=== PATIENT | female | born 1970 | race Caucasian/White ===

== ENCOUNTER 2024-06-17 07:45 | Emergency (ER) | payer SELFPAY ==
[2024-06-17 07:45] VITALS: BMI 40.3
--- NOTE | 2024-06-17 07:49 | EKG_ITS ---
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
[2024-06-17 08:05] VITALS: BP 191/106; BP 221/81; PULSE 90; RESP 20; TEMP 37.1; O2SAT 98
--- NOTE | 2024-06-17 08:06 | XR_ITS ---
Examination: PA lateral chest 2 views TECHNIQUE: Upright PA lateral chest 2 views Exam date and time: June 17, 2024 0847 hours INDICATIONS: Chest pain shortness of breath beginning one week ago. FINDINGS: No significant cardiac enlargement Minor scarring in the lingular segment No lobar pneumonia or pulmonary edema IMPRESSION: No lobar pneumonia or pulmonary edema
[2024-06-17 08:12] VITALS: BP 221/81; PULSE 90
[2024-06-17] MEDS: cloNIDine HCL 0.1 MG TABLET 0.2 MG PO (08:12)
[2024-06-17] MEDS: ALPRazoLAM 0.25 MG TABLET PO (08:13)
[2024-06-17 09:01] LABS: Basophils # (Auto) 0.1 Thou/mm3 (0.0-0.2); Basophils % (Auto) 1 % (0-2.5); Eosinophils # (Auto) 0.1 Thou/mm3 (0.0-0.5); Eosinophils % (Auto) 1 % (0-10); Hematocrit 43.5 % (36.0-46.0); Hemoglobin 15.1 g/dL (12.0-16.0); Immature Granulocytes % (Auto) 1 % (0-0); Immature Granulocytes Auto 0.03 Thou/mm3 (0.00-0.00); Lymphocytes # (Auto) 1.4 Thou/mm3 (1.0-4.8); Lymphocytes % (Auto) 22 % (10-50); Mean Corpuscular HGB Conc 34.7 g/dl (31.0-37.0); Mean Corpuscular Hemoglobin 34.1 pg (25.0-35.0); Mean Corpuscular Volume 98 fL (80-100); Monocytes # (Auto) 0.4 Thou/mm3 (0.0-0.8); Monocytes % (Auto) 6 % (0-12); Neutrophils # (Auto) 4.5 Thou/mm3 (1.8-7.7); Neutrophils % (Auto) 70 % (37-80); Nucleated Red Blood Cell % 0 /100 WBC (0); Platelet Count 232 Thou/mm3 (140-440); RDW Standard Deviation 50.2 fL (36.4-46.3); Red Blood Count 4.43 Miln/mm3 (4.00-5.20); White Blood Count 6.5 Thou/mm3 (3.6-11.0)
[2024-06-17 09:21] LABS: Alanine Aminotransferase 57 U/L (10-49); Albumin/Globulin Ratio 1.6 (1.2-2.2); Alkaline Phosphatase 75 U/L (46-116); Anion Gap 10 (7-16); Aspartate Amino Transferase 81 U/L (0-34); BUN/Creatinine Ratio 9 Ratio (12-20); Bilirubin,Total 3.8 mg/dL (0.3-1.2); Blood Urea Nitrogen 8 mg/dL (9-23); Carbon Dioxide 27.2 mMol/L (20.0-31.0); Chloride 97 mMol/L (98-107); Creatinine (Component) 0.9 mg/dL (0.6-1.3); Estimated Creatinine Clearance 86.1 mL/min (>60); Globulin 3.1 gm/dL (2.3-3.5); Glucose 125 mg/dL (74-106); Osmolality,Calculated 267 (275-295); Potassium 4.2 mMol/L (3.4-5.1); Sodium 134 mMol/L (136-145); Total Protein 8.1 gm/dL (5.7-8.2); Troponin I < 0.020 ng/mL (0.0-0.045); eGFR > 60 See Note
--- NOTE | 2024-06-17 09:25 | XR_ITS ---
Examination: Abdomen sonogram, Limited Date and time of exam: June 17, 2024 1109 hours INDICATIONS: Abdominal pain high blood pressure epigastric pain today Technique: Real-time stevens scale transabdominal sonographic images of the upper abdomen obtained. Findings: Normal gallbladder Normal common bile duct 0.3 cm Pancreatic head 3.4 cm Liver 16.4 cm fatty infiltration no focal liver lesions Normal hepatopedal portal venous flow Patent IVC IMPRESSION: Normal gallbladder Mild hepatomegaly fatty liver
[2024-06-17] MEDS: IBUPROFEN TAB 400 MG TABLET 800 MG PO (09:35)
[2024-06-17 10:05] VITALS: BP 164/90; PULSE 73; RESP 16; TEMP 37.3; O2SAT 95
[2024-06-17 10:36] LABS: Lipase 37 U/L (12-53)
--- NOTE | 2024-06-17 11:53 | PD.EDADULT ---
ED General RME/HPI General Chief complaint: General Adult/Misc Complain Stated complaint: BP 200/100 FEELING CLAMMY Time Seen by Provider: 06/17/24 07:49 Arrival date/time: 06/17/24 07:45 53-year-old female presents emerged department complaint of elevated blood pressure and anxiety patient reports history of hypertension reports has not taken her medication in some time patient reports no fever nausea or vomiting. Patient shares that this feels like her anxiety acting up Limitations: no limitations Related Data Allergies Allergy/AdvReac Type Severity Reaction Status Date / Time UNKOWN ARTHRITIS CREAM Allergy Severe Hives Uncoded 06/17/24 07:47 Review of Systems Review of Systems Systems Reviewed: All systems reviewed, normal except as documented Constitutional Constitutional: Reports system reviewed and no additional complaints, except as documented, Denies fever(s) and Denies headache(s) Eyes Eyes: Reports system reviewed and no additional complaints, except as documented and Denies blurry vision ENT Ears, Nose, Mouth, and Throat: Reports system reviewed and no additional complaints, except as documented, Denies headache(s), Denies nasal congestion and Denies nasal discharge Cardiovascular Cardiovascular: Reports system reviewed and no additional complaints, except as documented, Denies chest pain and Denies dyspnea Respiratory Respiratory: Reports system reviewed and no additional complaints, except as documented, Denies chest congestion, Denies cough and Denies dyspnea Gastrointestinal Gastrointestinal: Reports system reviewed and no additional complaints, except as documented and Denies abdominal pain Integumentary/Breasts Skin/Breast: Reports system reviewed and no additional complaints, except as documented and Denies rash Neurologic Neurologic: Reports system reviewed and no additional complaints, except as documented, Reports as per HPI and Denies headache(s) Psychiatric Psychiatric: Reports system reviewed and no additional complaints, except as documented, Reports anxiety, Denies homicidal ideation, Denies hopelessness, Reports panic attacks and Denies suicidal ideation Past Medical History Past Medical History CARDIAC: Negative Congestive Heart Failure RESPIRATORY: Negative Chronic Obstructive Pulmonary Disease (COPD) GENITOURINARY: Negative Renal Disease ENDOCRINE: Negative Diabetes Mellitus Type 1 or Diabetes Mellitus Type 2 Social History SMOKING STATUS: Never smoker ED Exam General Limitations: Present no limitations General appearance: Present alert and in no apparent distress Head Head exam: Present atraumatic, normocephalic and normal inspection Eye Eye exam: Present normal appearance, PERRL and EOMI; Absent conjunctival injection ENT ENT exam: Present normal exam, normal oropharynx and mucous membranes moist Neck Neck exam: Present normal inspection, full ROM and trachea midline Chest Chest inspection: Present normal inspection and symmetric chest wall rise Respiratory Respiratory exam: Present normal lung sounds bilaterally; Absent respiratory distress Cardiovascular Cardiovascular exam: Present regular rate, normal rhythm and normal heart sounds Abdominal Exam Abdominal exam: Present soft and normal bowel sounds; Absent distention, tenderness, guarding, rebound, rigidity, Graham's sign or tenderness at McBurney's Point Abdominal tenderness: Absent RUQ or RLQ Extremities Exam Extremities exam: Present normal inspection and full ROM Back Exam Back exam: Present normal inspection and full ROM Neurological Exam Neurological exam: Present alert, oriented X3 and CN II-XII intact Psychiatric Psychiatric exam: Present normal affect and normal mood Skin Skin exam: Present warm, dry, intact and normal color Course Quality Measures none Orders Category Date Time Status EKG (ED ONLY) *Do not use* NOW Care 06/17/24 07:49 Completed EKG (ED Only) Stat Exams 06/17/24 07:49 Draft US gall bladder Stat Exams 06/17/24 09:25 Completed XR chest 2V Stat Exams 06/17/24 08:06 Completed CBC Stat Lab 06/17/24 08:27 Completed Comprehensive Metabolic Panel Stat Lab 06/17/24 08:27 Completed Lipase Stat Lab 06/17/24 08:27 Completed Troponin I Stat Lab 06/17/24 08:27 Completed ALPRazoLAM [Xanax] Med 06/17/24 08:06 Discontinued 0.25 mg PO X1 ONE Ibuprofen Tab [Motrin Tab] Med 06/17/24 09:30 Discontinued 800 mg PO X1 ONE cloNIDine HCL [Catapres] Med 06/17/24 08:06 Discontinued 0.2 mg PO X1 ONE Vital Signs Vital signs: Vital Signs Temperature 98.7 F 06/17/24 08:05 Pulse Rate 90 06/17/24 08:05 Respiratory Rate 20 06/17/24 08:05 Blood Pressure 221/81 H 06/17/24 08:05 Pulse Oximetry (%) 98 06/17/24 08:05 Oxygen Delivery Method Room Air 06/17/24 08:05 o2 sat 98% r/a wnl Procedures -ED EKG Interpretation #1: Date of EK06/17/24 Time of EK:00 Rate: 73 Interpretation: Interpreted by me EKG Impression: Normal sinus rhythm, No acute ST-T changes, No ectopy, No ischemic changes, Normal QRS, Normal intervals and Normal axis MDM Patient data External records reviewed:: [facility] previous records Clinical information provided by:: patient Social determinants that could affect healthcare access:: mental health Patient has the following chronic illnesses:: See history How is presenting disease/condition affected by chronic disease/condition?: caused by Evaluation data The following diagnostics were reviewed and interpreted by me:: lab results, radiology exam(s) and EKG tracing(s) Lab and/or radiology exams considered but not ordered:: Labs, radiology, EKG obtained Interpretation Summary: Reviewed by me Medications Medications considered but not ordered:: Given Medication administrations:: Medication Administration History Discontinued Medications Alprazolam (Alprazolam 0.25 Mg Tablet) 0.25 mg PO X1 ONE Stop: 06/17/24 08:07 Last Admin: 06/17/24 08:13 Dose: 0.25 mg Documented By: JACKIE Clonidine (Clonidine Hcl 0.1 Mg Tablet) 0.2 mg PO X1 ONE Stop: 06/17/24 08:07 Last Admin: 06/17/24 08:12 Dose: 0.2 mg Documented By: VG Ibuprofen (Ibuprofen Tab 400 Mg Tablet) 800 mg PO X1 ONE Stop: 06/17/24 09:31 Last Admin: 06/17/24 09:35 Dose: 800 mg Documented By: TM Given Consultations Consultation(s) initiated? (list below): No Diagnosis Differential Diagnosis ED Complaint MDM: Chest pain, anxiety, abdominal pain Most likely diagnosis given after review of the tests above:: Anxiety, elevated liver enzymes Admission Indicated Admission indicated?: not indicated Explain why admission is indicated or not indicated:: No criteria Admission Request Was there a request for admission?: No Disposition Plan Disposition Plan: Discharge Discharge Attestation Discharge Attestation: The patient and all family members were given an opportunity to ask questions and understood the discharge instructions. Discharge instructions specifically effects, indications for sooner follow up or return to the emergency department, and the expected course of current diagnosis. Patient condition: Stable Medical Decision Making MDM Narrative MDM Narrative: 53-year-old female presents emerged department complaint of elevated blood pressure and anxiety patient reports history of hypertension reports has not taken her medication in some time patient reports no fever nausea or vomiting. Patient shares that this feels like her anxiety acting up On exam patient does not appear ill or toxic in no acute distress Lab work EKG and imaging obtained EKG is unremarkable Troponin is normal Patient given medication for blood pressure as well as anxiety patient reports her symptoms have significantly improved and her blood pressure is significantly improved as well Incidentally patient was noted to have elevated liver enzymes, lipase was normal Gallbladder ultrasound obtained patient does have fatty liver otherwise unremarkable Explained to the patient she needs to follow-up with her primary care doctor in order to get further workup of her elevated liver enzymes. Patient reports no abdominal pain whatsoever patient has negative Graham sign Differential Diagnosis Differential Diagnosis: Chest pain, anxiety, abdominal pain Medical Records Medical records reviewed: Yes I reviewed the patient's medical records. Lab Data Lab results reviewed: Yes I reviewed the patient's lab results. 06/17/24 08:27 06/17/24 08:27 Labs: Lab Results 06/17/24 Range/Units 08:27 WBC 6.5 (3.6-11.0) Thou/mm3 RBC 4.43 (4.00-5.20) Miln/mm3 Hgb 15.1 (12.0-16.0) g/dL Hct 43.5 (36.0-46.0) % MCV 98 (80-100) fL MCH 34.1 (25.0-35.0) pg MCHC 34.7 (31.0-37.0) g/dl RDW Std Deviation 50.2 H (36.4-46.3) fL Plt Count 232 (140-440) Thou/mm3 Neut % (Auto) 70 (37-80) % Lymph % (Auto) 22 (10-50) % [place] % (Auto) 6 (0-12) % Eos % (Auto) 1 (0-10) % Baso % (Auto) 1 (0-2.5) % Neut # (Auto) 4.5 (1.8-7.7) Thou/mm3 Lymph # (Auto) 1.4 (1.0-4.8) Thou/mm3 [place] # (Auto) 0.4 (0.0-0.8) Thou/mm3 Eos # (Auto) 0.1 (0.0-0.5) Thou/mm3 Baso # (Auto) 0.1 (0.0-0.2) Thou/mm3 Immature Gran # (Auto) 0.03 H (0.00-0.00) Thou/mm3 Absolute Nucleated RBC 0.00 (0.00-0.00) Thou/mm3 Immature Gran % 1 H (0-0) % Nucleated RBC % 0 (0) /100 WBC Sodium 134 L (136-145) mMol/L Potassium 4.2 (3.4-5.1) mMol/L Chloride 97 L (98-107) mMol/L Carbon Dioxide 27.2 (20.0-31.0) mMol/L Anion Gap 10 (7-16) BUN 8 L (9-23) mg/dL Creatinine 0.9 (0.6-1.3) mg/dL Estim Creat Clear Calc 86.1 (>60) mL/min eGFR > 60 (60 - ) See Note BUN/Creatinine Ratio 9 L (12-20) Ratio Glucose 125 H (74-106) mg/dL Calculated Osmolality 267 L (275-295) Calcium 10.0 (8.3-10.6) mg/dL Corrected Calcium 10.0 (8.5-10.1) mg/dL Total Bilirubin 3.8 H (0.3-1.2) mg/dL AST 81 H (0-34) U/L ALT 57 H (10-49) U/L Alkaline Phosphatase 75 (46-116) U/L Troponin I < 0.020 (0.0-0.045) ng/mL Total Protein 8.1 (5.7-8.2) gm/dL Albumin 5.0 (3.5-5.0) gm/dL Globulin 3.1 (2.3-3.5) gm/dL Albumin/Globulin Ratio 1.6 (1.2-2.2) Lipase 37 (12-53) U/L Radiology Data Radiology results reviewed: Yes I reviewed the patient's radiology results. Discharge Plan Plan Patient Disposition: HOME (Self Care) Disposition Comment: Stable Prescriptions/Referrals Referrals: Alec Peterson MD [Primary Care Provider] - In 1 week Problem List Clinical Impression: Anxiety, Hypertension, Elevated liver enzymes Patient/Caregiver Discharge Instructions Education Materials: ED Anxiety Reaction Additional Instructions: Please follow with your primary care doctor in order for them to start your blood pressure medication once again also would like you to discuss with them your liver enzymes and possibly referred to a specialist Your bilirubin today is 3.8 AST 81 ALT 57 For any emergent concerns please return to the ER immediately Print Language: Mongolian Stand Alone Forms: [facility] Award Info., Patient Portal Info Letter PA/POINT OF CARE TECHNICIAN Supervising Physician PA/POINT OF CARE TECHNICIAN Supervising Physician: Dr Lewis
== END 2024-06-17 12:22 | disposition home or self-care (01) ==
PROVIDERS: Nurse Practitioner Primary Care; Emergency Provider Emergency Medicine; PCP Family Medicine
DX: F41.9 Anxiety disorder, unspecified (principal); I10 Essential (primary) hypertension
CPT/HCPCS: 36415; 71046; 76705; 80053; 83690; 84484; 85025; 93005; 99284; A9270

== ENCOUNTER 2024-07-21 13:58 | Emergency (ER) | payer MEDICAID, SELFPAY ==
[2024-07-21 14:00] VITALS: BMI 39.4
[2024-07-21 14:16] VITALS: BP 178/85; BP 181/93; PULSE 81; RESP 18; TEMP 36.9; O2SAT 95
--- NOTE | 2024-07-21 14:20 | EKG_ITS ---
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
--- NOTE | 2024-07-21 14:20 | PD.EDADULT ---
ED General RME/HPI General Chief complaint: General Adult/Misc Complain Stated complaint: HIGHB/P, NOT EATING/SLEEPING, EYE SKIN YELLOW Source: patient Arrival date/time: 07/21/24 13:58 53-year-old female with a history of hypertension presents to the emergency room with a chief complaint of high blood pressure, insomnia, and yellowing sclera. Patient states she was seen by her primary care provider and sent to the emergency room due to her blood pressure being in the 200s systolic. Mode of arrival: ambulatory Limitations: no limitations Related Data Allergies Allergy/AdvReac Type Severity Reaction Status Date / Time UNKOWN ARTHRITIS CREAM Allergy Severe Hives Uncoded 07/21/24 14:02 ED Exam General Limitations: Present no limitations Course Orders Category Date Time Status EKG (ED ONLY) *Do not use* NOW Care 07/21/24 14:20 Ordered EKG (ED Only) Stat Exams 07/21/24 14:20 Ordered B-Type Natriuretic Peptide Stat Lab 07/21/24 14:20 Ordered CBC Stat Lab 07/21/24 14:20 Ordered Comprehensive Metabolic Panel Stat Lab 07/21/24 14:20 Ordered Troponin I Stat Lab 07/21/24 14:20 Ordered Urinalysis Stat Lab 07/21/24 14:20 Ordered cloNIDine HCL [Catapres] Med 07/21/24 14:20 Once 0.1 mg PO X1 ONE Vital Signs Vital signs: Vital Signs Temperature 98.5 F 07/21/24 14:16 Pulse Rate 81 07/21/24 14:16 Respiratory Rate 18 07/21/24 14:16 Blood Pressure 178/85 H 07/21/24 14:16 Pulse Oximetry (%) 95 07/21/24 14:16 Oxygen Delivery Method Room Air 07/21/24 14:16 Discharge Plan Patient/Caregiver Discharge Instructions Print Language: Nepalese
[2024-07-21 14:38] VITALS: BP 178/85; PULSE 81
[2024-07-21] MEDS: cloNIDine HCL 0.1 MG TABLET PO (14:38)
[2024-07-21 14:45] LABS: Basophils % (Auto) 0 % (0-2.5); Eosinophils # (Auto) 0.1 Thou/mm3 (0.0-0.5); Eosinophils % (Auto) 1 % (0-10); Hematocrit 39.3 % (36.0-46.0); Hemoglobin 14.1 g/dL (12.0-16.0); Immature Granulocytes % (Auto) 0 % (0-0); Immature Granulocytes Auto 0.02 Thou/mm3 (0.00-0.00); Lymphocytes # (Auto) 1.5 Thou/mm3 (1.0-4.8); Lymphocytes % (Auto) 20 % (10-50); Mean Corpuscular HGB Conc 35.9 g/dl (31.0-37.0); Mean Corpuscular Hemoglobin 34.2 pg (25.0-35.0); Mean Corpuscular Volume 95 fL (80-100); Monocytes # (Auto) 0.5 Thou/mm3 (0.0-0.8); Monocytes % (Auto) 6 % (0-12); Neutrophils # (Auto) 5.3 Thou/mm3 (1.8-7.7); Neutrophils % (Auto) 72 % (37-80); Nucleated Red Blood Cell % 0 /100 WBC (0); Platelet Count 167 Thou/mm3 (140-440); RDW Standard Deviation 49.2 fL (36.4-46.3); Red Blood Count 4.12 Miln/mm3 (4.00-5.20); White Blood Count 7.3 Thou/mm3 (3.6-11.0)
[2024-07-21 15:03] LABS: B-Type Natriuretic Peptide < 20 pg/mL (0-100)
[2024-07-21 15:13] LABS: Alanine Aminotransferase 73 U/L (10-49); Albumin/Globulin Ratio 1.6 (1.2-2.2); Alkaline Phosphatase 87 U/L (46-116); Anion Gap 10 (7-16); Aspartate Amino Transferase 125 U/L (0-34); BUN/Creatinine Ratio 10 Ratio (12-20); Bilirubin,Total 3.6 mg/dL (0.3-1.2); Blood Urea Nitrogen 8 mg/dL (9-23); Carbon Dioxide 26.9 mMol/L (20.0-31.0); Chloride 99 mMol/L (98-107); Creatinine (Component) 0.8 mg/dL (0.6-1.3); Estimated Creatinine Clearance 95.7 mL/min (>60); Globulin 3.2 gm/dL (2.3-3.5); Glucose 125 mg/dL (74-106); Osmolality,Calculated 271 (275-295); Potassium 4.4 mMol/L (3.4-5.1); Sodium 136 mMol/L (136-145); Total Protein 8.2 gm/dL (5.7-8.2); eGFR > 60 See Note
[2024-07-21 15:26] LABS: Troponin I < 0.020 ng/mL (0.0-0.045)
[2024-07-21 15:49] LABS: Collection Type, Urine Clean Catch
--- NOTE | 2024-07-21 15:51 | PD.EDRME ---
Rapid Medical Screening Exam [facility] Arrival date/time: 07/21/24 13:58 53-year-old female with a history of hypertension presents to the emergency room with a chief complaint of high blood pressure, insomnia, and yellowing sclera. Patient states she was seen by her primary care provider and sent to the emergency room due to her blood pressure being in the 200s systolic. I have greeted and performed a focused initial assessment of this patient. A comprehensive ED assessment and evaluation of the patient, analysis of all test results, and completion of the medical decision making process will be conducted by additional ED providers. Chief Complaint: General Adult/Misc Complain Time Seen by Provider: 07/21/24 14:21 Vital signs: Vital Signs Temperature 98.5 F 07/21/24 14:16 Pulse Rate 81 07/21/24 14:16 Respiratory Rate 18 07/21/24 14:16 Blood Pressure 178/85 H 07/21/24 14:16 Pulse Oximetry (%) 95 07/21/24 14:16 Oxygen Delivery Method Room Air 07/21/24 14:16 Vital signs reviewed by provider: Yes
--- NOTE | 2024-07-21 15:52 | XR_ITS ---
Examination: Abdomen sonogram, Limited Date and time of exam: July 21, 2024 1708 hrs. Indications: Right upper abdominal pain beginning 3 days ago Technique: Real-time stevens scale transabdominal sonographic images of the upper abdomen obtained. Findings: Negative for gallstones Gallbladder wall 0.1 cm Common bile duct 0.2 cm Pancreatic head 3.0 cm Liver 16.9 cm fatty infiltration no focal liver lesions Normal hepatopedal portal venous flow Patent IVC Impression: Negative for cholelithiasis, negative for cholecystitis Mild hepatomegaly fatty liver
[2024-07-21 16:27] LABS: Bilirubin,Total 3.5 mg/dL (0.3-1.2); Triglycerides 105 mg/dL (30-150)
[2024-07-21 16:29] LABS: Bacteria,Urine Rare; Bilirubin,Urine Negative (Negative); Blood,Urine Negative (Negative); Clarity,Urine Turbid (Clear/Hazy); Color,Urine Drk-Yellow (Lt Yel-Yel); Glucose, Urine Negative (Negative); Ketones,Urine 2+ (Negative); Leukocyte Esterase,Urine Positive (Negative); Nitrite,Urine Negative (Negative); Protein,Urine 2+ (Neg - Trace); RBC,Urine 3 /hpf (0-3); Specific Gravity,Urine 1.031 (1.001-1.035); Squamous Epithelial Cell,Urine 49 /hpf (0-5); WBC,Urine 23 /hpf (0-5)
[2024-07-21 16:56] VITALS: BP 180/102; BP 188/104; PULSE 91; RESP 18; TEMP 36.9; O2SAT 95
--- NOTE | 2024-07-21 18:53 | XR_ITS ---
Examination: CT abdomen with intravenous contrast CT pelvis with intravenous contrast 2-D coronal reconstructions 2-D sagittal reconstructions Date and time of exam:July 21, 2024 2107 hrs. Indications: Elevated blood pressure with jaundice beginning 3 days ago. CTDI: vol (mGy) 13.8 DLP: (mGycm) 908 Technique: Multiple axial sections of the abdomen and pelvis have been obtained. 64 slice high-resolution scanner used. 3 mm axial sections have been obtained, post intravenous injection 60 cc [id number] 2-D sagittal, coronal reconstructions obtained. Low dose protocols were performed. One or more of the following dose reduction techniques were used; automated exposure control, adjustment of the mA and/or KV according to patient size, use of iterative reconstruction technique. Findings: Diffuse fatty infiltration throughout the liver No definite gallstones Spleen is not enlarged No pancreatic mass Normal adrenal glands No renal or ureteral calculi, no hydronephrosis Aorta normal size No bowel obstruction No pericecal inflammatory change No diverticulitis Advanced disc narrowing L5-S1 Urinary bladder intact Impression: Mild hepatomegaly fatty infiltration No definite gallstones No extra hepatic biliary tract dilatation Given the patient's elevated total bilirubin, consider MRCP follow-up
--- NOTE | 2024-07-21 18:54 | EDNOTE_ITS ---
ED General RME/HPI General Chief complaint: General Adult/Misc Complain Stated complaint: HIGHB/P, NOT EATING/SLEEPING, EYE SKIN YELLOW Time Seen by Provider: 07/21/24 14:21 Arrival date/time: 07/21/24 13:58 CC: Elevated blood pressure anxiety, and mild upper abdominal pain HPI patient has had loss of appetite for the past several days, is fairly anxious, but her blood pressure at the time of the exam was 170/80. Patient was delighted that her blood pressure is coming down without intervention. The patient is awake alert oriented states during the ultrasound she noticed that she had upper central and right upper quadrant abdominal pain with the probe. Patient denies fever nausea vomiting diarrhea during the last 24 hours. RME / HPI RME / HPI narrative: 07/21/24 13:58 53-year-old female with a history of hypertension presents to the emergency room with a chief complaint of high blood pressure, insomnia, and yellowing sclera. Patient states she was seen by her primary care provider and sent to the emergency room due to her blood pressure being in the 200s systolic. I have greeted and performed a focused initial assessment of this patient. A comprehensive ED assessment and evaluation of the patient, analysis of all test results, and completion of the medical decision making process will be conducted by additional ED providers. Related Data Allergies Allergy/AdvReac Type Severity Reaction Status Date / Time UNKOWN ARTHRITIS CREAM Allergy Severe Hives Uncoded 07/21/24 14:02 Review of Systems Review of Systems Narrative Review of Systems: GEN: No fever, no chills, no weight loss EYES: No discharge, no visual changes, no pain HEENT: No ear pain, no congestion, no sore throat PULM: No shortness of breath, no cough, no congestion CV: No chest pain, no dyspnea on exertion, no palpitations GI: No nausea, no vomiting, no diarrhea, no pain, no constipation : No frequency, no urgency, no dysuria MUSC/SKEL: No joint pain, no back pain SKIN: No rash PSYCH: No hallucinations, no depression HEME/LYMPH: No easy bleeding or bruising tendencies NEURO: No weakness, no headache Past Medical History Past Medical History CARDIAC: Negative Congestive Heart Failure RESPIRATORY: Negative Chronic Obstructive Pulmonary Disease (COPD) GENITOURINARY: Negative Renal Disease ENDOCRINE: Negative Diabetes Mellitus Type 1 or Diabetes Mellitus Type 2 Social History SMOKING STATUS: Never smoker ED Exam Narrative Physical exam: [General: Obese not in any acute distress Head normocephalic HEENT: Within acceptable limits Neck is supple nontender Chest equal chest rise nontender to palpation Respiratory: Clear to auscultation no wheezes crackles or rubs CV: Rate rhythm is regular no murmurs rubs or clicks Abdomen is distended secondary to body habitus soft, very mild epigastric right upper quadrant abdominal pain with deep palpation, no reflexive guarding no rebound tenderness. Back: No CVA tenderness no spinous process tenderness from cervical spine thoracic and lumbar spine Skin: Intact no petechiae rash induration ulceration or crepitus Extremities: Moving all extremity against resistance cap refill less than 2 seconds neurosensory intact. No lower extremity edema. Neuro: Awake alert oriented x3 Glascow coma 15 no focal deficits] Course Quality Measures none Orders Category Date Time Status CT Screening NOW Care 07/21/24 18:53 Active EKG (ED ONLY) *Do not use* NOW Care 07/21/24 14:[address] abdomen pelvis w con Stat Exams 07/21/24 18:53 Completed EKG (ED Only) Stat Exams 07/21/24 14:20 Draft US gall bladder Stat Exams 07/21/24 15:52 Completed B-Type Natriuretic Peptide Stat Lab 07/21/24 14:37 Completed Bilirubin,Total Stat Lab 07/21/24 14:37 Completed CBC Stat Lab 07/21/24 14:37 Completed Comprehensive Metabolic Panel Stat Lab 07/21/24 14:37 Completed HCG Qualitative,Urine Stat Lab 07/21/24 20:52 Ordered Hepatitis Acute Panel Stat Lab 07/21/24 14:37 Received Triglycerides Stat Lab 07/21/24 14:37 Completed Troponin I Stat Lab 07/21/24 14:37 Completed Urinalysis Stat Lab 07/21/24 15:11 Completed cloNIDine HCL [Catapres] Med 07/21/24 14:20 Discontinued 0.1 mg PO X1 ONE Vital Signs Vital signs: Vital Signs Temperature 98.5 F 07/21/24 14:16 Pulse Rate 81 07/21/24 14:16 Respiratory Rate 18 07/21/24 14:16 Blood Pressure 178/85 H 07/21/24 14:16 Pulse Oximetry (%) 95 07/21/24 14:16 Oxygen Delivery Method Room Air 07/21/24 14:16 MDM Patient data External records reviewed:: [facility] previous records Clinical information provided by:: patient Social determinants that could affect healthcare access:: none Patient has the following chronic illnesses:: Obesity How is presenting disease/condition affected by chronic disease/condition?: u neffected by Evaluation data The following diagnostics were reviewed and interpreted by me:: lab results, radiology exam(s) and EKG tracing(s) Lab and/or radiology exams considered but not ordered:: EKG performed at 1429 shows a ventricular rate of 80 MS interval 168 QRS of 83 QTc 407 sinus rhythm CBC shows no acute leukocytosis anemia thrombocytopenia CMP shows no acute electrolyte imbalances no renal impairment however there is a T. bili of 3.5 and transaminitis. Troponin is negative BNP is negative Urine is dark, no sign of a UTI as it mildly contaminated most notably no bilirubin in the urine. CT of the abdomen as interpreted by me read by radiology as negative for any acute finding cries emergent immediate intervention however given the patient's elevated T. bili at 3.5 with no prior history of it patient needs an MRCP. Patient stable after discharge home to follow-up in the morning for MRCP. Interpretation Summary: Hypertension is spontaneously resolved, patient will return in the morning for MRCP secondary to elevated T. bili Medications Medications considered but not ordered:: None Medication administrations:: Medication Administration History Discontinued Medications Clonidine (Clonidine Hcl 0.1 Mg Tablet) 0.1 mg PO X1 ONE Stop: 07/21/24 14:21 Last Admin: 07/21/24 14:38 Dose: 0.1 mg Documented By: None Consultations Consultation(s) initiated? (list below): No Diagnosis Differential Diagnosis ED Complaint MDM: Hypertension hypertensive urgency hypertensive emergency Most likely diagnosis given after review of the tests above:: Hypertension, hyperbilirubinemia Admission Indicated Admission indicated?: not indicated Explain why admission is indicated or not indicated:: Stable for outpatient follow-up Admission Request Was there a request for admission?: No Disposition Plan Disposition Plan: Discharge Discharge Attestation Discharge Attestation: The patient and all family members were given an opportunity to ask questions and understood the discharge instructions. Discharge instructions specifically effects, indications for sooner follow up or return to the emergency department, and the expected course of current diagnosis. Patient condition: Stable Medical Decision Making Differential Diagnosis Differential Diagnosis: Hypertension hypertensive urgency hypertensive emergency Lab Data 07/21/24 14:37 07/21/24 14:37 Labs: Lab Results 07/21/24 07/21/24 07/21/24 Range/Units 14:37 14:37 15:11 WBC 7.3 (3.6-11.0) Thou/mm3 RBC 4.12 (4.00-5.20) Miln/mm3 Hgb 14.1 (12.0-16.0) g/dL Hct 39.3 (36.0-46.0) % MCV 95 (80-100) fL MCH 34.2 (25.0-35.0) pg MCHC 35.9 (31.0-37.0) g/dl RDW Std Deviation 49.2 H (36.4-46.3) fL Plt Count 167 D (140-440) Thou/mm3 Neut % (Auto) 72 (37-80) % Lymph % (Auto) 20 (10-50) % [place] % (Auto) 6 (0-12) % Eos % (Auto) 1 (0-10) % Baso % (Auto) 0 (0-2.5) % Neut # (Auto) 5.3 (1.8-7.7) Thou/mm3 Lymph # (Auto) 1.5 (1.0-4.8) Thou/mm3 [place] # (Auto) 0.5 (0.0-0.8) Thou/mm3 Eos # (Auto) 0.1 (0.0-0.5) Thou/mm3 Baso # (Auto) 0.0 (0.0-0.2) Thou/mm3 Immature Gran # (Auto) 0.02 H (0.00-0.00) Thou/mm3 Absolute Nucleated RBC 0.00 (0.00-0.00) Thou/mm3 Immature Gran % 0 (0-0) % Nucleated RBC % 0 (0) /100 WBC Sodium 136 (136-145) mMol/L Potassium 4.4 (3.4-5.1) mMol/L Chloride 99 (98-107) mMol/L Carbon Dioxide 26.9 (20.0-31.0) mMol/L Anion Gap 10 (7-16) BUN 8 L (9-23) mg/dL Creatinine 0.8 (0.6-1.3) mg/dL Estim Creat Clear Calc 95.7 (>60) mL/min eGFR > 60 (60 - ) See Note BUN/Creatinine Ratio 10 L (12-20) Ratio Glucose 125 H (74-106) mg/dL Calculated Osmolality 271 L (275-295) Calcium 10.0 (8.3-10.6) mg/dL Corrected Calcium 10.0 (8.5-10.1) mg/dL Total Bilirubin 3.6 H 3.5 H (0.3-1.2) mg/dL AST 125 H (0-34) U/L ALT 73 H (10-49) U/L Alkaline Phosphatase 87 (46-116) U/L Troponin I < 0.020 (0.0-0.045) ng/mL B-Natriuretic Peptide < 20 (0-100) pg/mL Total Protein 8.2 (5.7-8.2) gm/dL Albumin 5.0 (3.5-5.0) gm/dL Globulin 3.2 (2.3-3.5) gm/dL Albumin/Globulin Ratio 1.6 (1.2-2.2) Triglycerides 105 (30-150) mg/dL Ur Collection Type Clean Catch Urine Color Drk-Yellow A (Lt Yel-Yel) Urine Clarity Turbid A (Clear/Hazy) Urine pH 6.0 (5.0-7.0) Ur Specific [place] 1.031 (1.001-1.035) Urine Protein 2+ A (Neg - Trace) Urine Glucose (UA) Negative (Negative) Urine Ketones 2+ A (Negative) Urine Blood Negative (Negative) Urine Nitrite Negative (Negative) Urine Bilirubin Negative (Negative) Urine Urobilinogen (Auto) 3.0 (0.0-1.0) mg/dL Ur Leukocyte Esterase Positive (Negative) Urine RBC 3 (0-3) /hpf Urine WBC 23 H (0-5) /hpf Ur Squamous Epith Cells 49 H (0-5) /hpf Urine Bacteria Rare (None) Discharge Plan Plan Patient Disposition: HOME (Self Care) Patient condition on transfer: Stable Prescriptions/Referrals Referrals: Jovanny Lara MD [Primary Care Provider] - In 1 week Problem List Clinical Impression: Hypertension, Total bilirubin, elevated Patient/Caregiver Discharge Instructions Education Materials: ED High Blood Pressure ..., Total Bilirubin (Blood) Additional Instructions: Please return in the morning for an MRCP. Your bilirubin is elevated without a known source. Print Language: Setswana Stand Alone Forms: [employer] Award Info., Patient Portal Info Letter, Work/School Release PA/AUTOMAT[employer]NER AND FORMER Supervising Physician PA/[employer] Supervising Physician: Tad Gilbert ENP
[2024-07-21 20:02] VITALS: BP 172/89; PULSE 86; RESP 17; TEMP 37; O2SAT 97
[2024-07-23 02:07] LABS: Hepatitis A Antibody IgM Non Reactive (Non React); Hepatitis B Core Antibody IgM Non Reactive (Non React); Hepatitis B Surface Antigen Non Reactive (Non React); Hepatitis C Antibody Non Reactive (Non React)
== END 2024-07-22 01:12 | disposition home or self-care (01) ==
PROVIDERS: Nurse Practitioner Family; Emergency Provider Emergency Medicine; PCP Family Medicine
DX: I10 Essential (primary) hypertension (principal); E80.7 Disorder of bilirubin metabolism, unspecified; R10.11 Right upper quadrant pain; R94.31 Abnormal electrocardiogram [ECG] [EKG]
CPT/HCPCS: 36415; 74177; 76705; 80053; 80074; 81001; 81025; 82247; 83880; 84478; 84484; 85025; 93005; 99285; A4649; Q9967; A9270

== ENCOUNTER 2024-07-22 08:54 | Emergency (ER) | payer MEDICAID, SELFPAY ==
--- NOTE | 2024-07-22 | XR_ITS ---
MRI abdomen, without contrast. MRCP Date and time of exam: July 22, 2024 0959 hours INDICATIONS: Elevated total bilirubin and jaundice this week Technique: Multiple axial and coronal images of the abdomen have been obtained with the Siemens 1.5T MRI scanner. Images obtained included T1 weighted transverse images, T2-weighted transverse images, T2-weighted transverse images fat-suppressed, T2 weighted haste fat suppressed transverse images, T1 weighted images, in and out of phase images, T2-weighted coronal images, breath hold, T2 weighted haze coronal images as well as T2 weighted coronal thick slab images, MRCP. Findings: Hepatomegaly 17 cm No focal liver lesions or intrahepatic biliary tract dilatation Spleen is not enlarged Negative for cholelithiasis, negative for cholecystitis Normal common hepatic common bile duct no extrahepatic biliary stones Pancreatic duct is not dilated Negative for pancreatitis No hydronephrosis Aorta normal size No ascites IMPRESSION: Mild hepatomegaly Normal gallbladder Negative for common hepatic or common bile duct stones Negative for pancreatitis
[2024-07-22 09:07] VITALS: BP 210/101; PULSE 85; RESP 18; TEMP 37.4; O2SAT 95
--- NOTE | 2024-07-22 09:08 | EDRME_ITS ---
Rapid Medical Screening Exam [facility] Arrival date/time: 07/22/24 08:54 53-year-old female with no known medical history presents to the emergency room with a chief complaint of generalized abdominal pain and jaundice in the sclera. Patient was seen here yesterday and told to return to the emergency room for an MRCP due to an elevated total bilirubin level and jaundice. Patient states her abdominal pain is better compared to yesterday. I have greeted and performed a focused initial assessment of this patient. A comprehensive ED assessment and evaluation of the patient, analysis of all test results, and completion of the medical decision making process will be conducted by additional ED providers. Chief Complaint: Abdominal Pain Vital signs: Vital Signs Temperature 99.3 F 07/22/24 09:07 Pulse Rate 85 07/22/24 09:07 Respiratory Rate 18 07/22/24 09:07 Blood Pressure 210/101 H 07/22/24 09:07 Pulse Oximetry (%) 95 07/22/24 09:07 Oxygen Delivery Method Room Air 07/22/24 09:07 Vital signs reviewed by provider: Yes
[2024-07-22 09:10] VITALS: BP 210/101; PULSE 85
[2024-07-22] MEDS: cloNIDine HCL 0.1 MG TABLET PO (09:10)
[2024-07-22 09:12] VITALS: BP 168/92
[2024-07-22 10:04] LABS: Basophils % (Auto) 1 % (0-2.5); Eosinophils # (Auto) 0.1 Thou/mm3 (0.0-0.5); Eosinophils % (Auto) 1 % (0-10); Hematocrit 37.7 % (36.0-46.0); Hemoglobin 13.5 g/dL (12.0-16.0); Immature Granulocytes % (Auto) 0 % (0-0); Immature Granulocytes Auto 0.01 Thou/mm3 (0.00-0.00); Lymphocytes # (Auto) 1.3 Thou/mm3 (1.0-4.8); Lymphocytes % (Auto) 19 % (10-50); Mean Corpuscular HGB Conc 35.8 g/dl (31.0-37.0); Mean Corpuscular Hemoglobin 34.5 pg (25.0-35.0); Mean Corpuscular Volume 96 fL (80-100); Monocytes # (Auto) 0.5 Thou/mm3 (0.0-0.8); Monocytes % (Auto) 7 % (0-12); Neutrophils # (Auto) 5.2 Thou/mm3 (1.8-7.7); Neutrophils % (Auto) 73 % (37-80); Nucleated Red Blood Cell % 0 /100 WBC (0); Platelet Count 159 Thou/mm3 (140-440); RDW Standard Deviation 49.7 fL (36.4-46.3); Red Blood Count 3.91 Miln/mm3 (4.00-5.20)
[2024-07-22 10:19] LABS: Alanine Aminotransferase 58 U/L (10-49); Albumin, Serum 4.6 gm/dL (3.5-5.0); Albumin/Globulin Ratio 1.4 (1.2-2.2); Alkaline Phosphatase 77 U/L (46-116); Anion Gap 9 (7-16); Aspartate Amino Transferase 85 U/L (0-34); BUN/Creatinine Ratio 13 Ratio (12-20); Bilirubin,Total 4.2 mg/dL (0.3-1.2); Blood Urea Nitrogen 10 mg/dL (9-23); Calcium 9.7 mg/dL (8.3-10.6); Calcium (Corrected) 9.7 mg/dL (8.5-10.1); Carbon Dioxide 28.4 mMol/L (20.0-31.0); Chloride 99 mMol/L (98-107); Creatinine (Component) 0.8 mg/dL (0.6-1.3); Globulin 3.3 gm/dL (2.3-3.5); Glucose 126 mg/dL (74-106); Lipase 62 U/L (12-53); Osmolality,Calculated 272 (275-295); Potassium 3.5 mMol/L (3.4-5.1); Sodium 136 mMol/L (136-145); Total Protein 7.9 gm/dL (5.7-8.2); eGFR > 60 See Note
[2024-07-22 11:35] VITALS: BP 150/79; PULSE 92; RESP 18; TEMP 37.1; O2SAT 95
--- NOTE | 2024-07-22 11:44 | PD.EDADULT ---
ED General RME/HPI General Chief complaint: Abdominal Pain Stated complaint: was told to return for MRI today for gallbladder Time Seen by Provider: 07/22/24 11:40 Arrival date/time: 07/22/24 08:54 CC: Epigastric right upper quadrant abdominal pain patient was told to rest return to the emergency room for MRCP. Patient is awake alert states she felt feverish last night but did not take her temperature patient is awake alert no other complaints. RME / HPI RME / HPI narrative: 07/22/24 08:54 53-year-old female with no known medical history presents to the emergency room with a chief complaint of generalized abdominal pain and jaundice in the sclera. Patient was seen here yesterday and told to return to the emergency room for an MRCP due to an elevated total bilirubin level and jaundice. Patient states her abdominal pain is better compared to yesterday. I have greeted and performed a focused initial assessment of this patient. A comprehensive ED assessment and evaluation of the patient, analysis of all test results, and completion of the medical decision making process will be conducted by additional ED providers. Related Data Allergies Allergy/AdvReac Type Severity Reaction Status Date / Time UNKOWN ARTHRITIS CREAM Allergy Severe Hives Uncoded 07/22/24 08:57 Review of Systems Review of Systems Narrative Review of Systems: GEN: No fever, no chills, no weight loss EYES: No discharge, no visual changes, no pain HEENT: No ear pain, no congestion, no sore throat PULM: No shortness of breath, no cough, no congestion CV: No chest pain, no dyspnea on exertion, no palpitations GI: No nausea, no vomiting, no diarrhea, no pain, no constipation : No frequency, no urgency, no dysuria MUSC/SKEL: No joint pain, no back pain SKIN: No rash PSYCH: No hallucinations, no depression HEME/LYMPH: No easy bleeding or bruising tendencies NEURO: No weakness, no headache Past Medical History Past Medical History CARDIAC: Negative Cardiac Disorders or Congestive Heart Failure RESPIRATORY: Negative Respiratory Disorders, Chronic Obstructive Pulmonary Disease (COPD) or Asthma GENITOURINARY: Negative Renal Disease ENDOCRINE: Negative Diabetes Mellitus Type 1 or Diabetes Mellitus Type 2 HEMATOLOGIC: Negative Sickle Cell Disease Social History SMOKING STATUS: Never smoker ED Exam Narrative Physical exam: [General: Obese not in any acute distress Head normocephalic HEENT: Within acceptable limits Neck is supple nontender Chest equal chest rise nontender to palpation Respiratory: Clear to auscultation no wheezes crackles or rubs CV: Rate rhythm is regular no murmurs rubs or clicks Abdomen is distended secondary to body habitus soft nontender no masses positive bowel sounds all 4 quadrants Back: No CVA tenderness no spinous process tenderness from cervical spine thoracic and lumbar spine Skin: Intact no petechiae rash induration ulceration or crepitus Extremities: Moving all extremity against resistance cap refill less than 2 seconds neurosensory intact Neuro: Awake alert oriented x3 Glascow coma 15 no focal deficits] Course Quality Measures none Orders Category Date Time Status MRI Screening NOW Care 07/22/24 09:07 Active MR MRCP Stat Exams 07/22/24 Completed CBC Stat Lab 07/22/24 09:38 Completed CMP [Comprehensive Metabolic Panel] Stat Lab 07/22/24 09:38 Completed Lipase Stat Lab 07/22/24 09:38 Completed cloNIDine HCL [Catapres] Med 07/22/24 09:07 Discontinued 0.1 mg PO X1 ONE Vital Signs Vital signs: Vital Signs Temperature 99.3 F 07/22/24 09:07 Pulse Rate 85 07/22/24 09:07 Respiratory Rate 18 07/22/24 09:07 Blood Pressure 210/101 H 07/22/24 09:07 Pulse Oximetry (%) 95 07/22/24 09:07 Oxygen Delivery Method Room Air 07/22/24 09:07 [facility] Patient data External records reviewed:: [facility] previous records Clinical information provided by:: patient Social determinants that could affect healthcare access:: none Patient has the following chronic illnesses:: Hypertension How is presenting disease/condition affected by chronic disease/condition?: uneffected by Evaluation data The following diagnostics were reviewed and interpreted by me:: lab results and radiology exam(s) Lab and/or radiology exams considered but not ordered:: CBC shows no acute leukocytosis anemia thrombocytopenia CMP shows no acute electrolyte imbalances renal impairment the T. bili is actually risen from 3.5-4, transaminitis have decreased. MRCP shows no acute finding including choledocholithiasis. Interpretation Summary: Patient will be discharged home to follow-up with her PCP if there is worsening of symptoms patient advised to return to the emergency room for further evaluation. Medications Medications considered but not ordered:: None Medication administrations:: Medication Administration History Discontinued Medications Clonidine (Clonidine Hcl 0.1 Mg Tablet) 0.1 mg PO X1 ONE Stop: 07/22/24 09:08 Last Admin: 07/22/24 09:10 Dose: 0.1 mg Documented By: MIKE None Consultations Consultation(s) initiated? (list below): No Diagnosis Differential Diagnosis ED Complaint MDM: Choledocholithiasis cholecystitis cholelithiasis pancreatitis Most likely diagnosis given after review of the tests above:: Elevated bilirubin Admission Indicated Admission indicated?: not indicated Explain why admission is indicated or not indicated:: Stable for outpatient follow-up Admission Request Was there a request for admission?: No Disposition Plan Disposition Plan: Discharge Discharge Attestation Discharge Attestation: The patient and all family members were given an opportunity to ask questions and understood the discharge instructions. Discharge instructions specifically effects, indications for sooner follow up or return to the emergency department, and the expected course of current diagnosis. Patient condition: Stable Medical Decision Making Differential Diagnosis Differential Diagnosis: Choledocholithiasis cholecystitis cholelithiasis pancreatitis Lab Data 07/22/24 09:38 07/22/24 09:38 Labs: Lab Results 07/22/24 Range/Units 09:38 WBC 7.0 (3.6-11.0) Thou/mm3 RBC 3.91 L (4.00-5.20) Miln/mm3 Hgb 13.5 (12.0-16.0) g/dL Hct 37.7 (36.0-46.0) % MCV 96 (80-100) fL MCH 34.5 (25.0-35.0) pg MCHC 35.8 (31.0-37.0) g/dl RDW Std Deviation 49.7 H (36.4-46.3) fL Plt Count 159 (140-440) Thou/mm3 Neut % (Auto) 73 (37-80) % Lymph % (Auto) 19 (10-50) % [place] % (Auto) 7 (0-12) % Eos % (Auto) 1 (0-10) % Baso % (Auto) 1 (0-2.5) % Neut # (Auto) 5.2 (1.8-7.7) Thou/mm3 Lymph # (Auto) 1.3 (1.0-4.8) Thou/mm3 [place] # (Auto) 0.5 (0.0-0.8) Thou/mm3 Eos # (Auto) 0.1 (0.0-0.5) Thou/mm3 Baso # (Auto) 0.0 (0.0-0.2) Thou/mm3 Immature Gran # (Auto) 0.01 H (0.00-0.00) Thou/mm3 Absolute Nucleated RBC 0.00 (0.00-0.00) Thou/mm3 Immature Gran % 0 (0-0) % Nucleated RBC % 0 (0) /100 WBC Sodium 136 (136-145) mMol/L Potassium 3.5 D (3.4-5.1) mMol/L Chloride 99 (98-107) mMol/L Carbon Dioxide 28.4 (20.0-31.0) mMol/L Anion Gap 9 (7-16) BUN 10 (9-23) mg/dL Creatinine 0.8 (0.6-1.3) mg/dL Estim Creat Clear Calc Not Performed. eGFR > 60 (60 - ) See Note BUN/Creatinine Ratio 13 (12-20) Ratio Glucose 126 H (74-106) mg/dL Calculated Osmolality 272 L (275-295) Calcium 9.7 (8.3-10.6) mg/dL Corrected Calcium 9.7 (8.5-10.1) mg/dL Total Bilirubin 4.2 H D (0.3-1.2) mg/dL AST 85 H (0-34) U/L ALT 58 H (10-49) U/L Alkaline Phosphatase 77 (46-116) U/L Total Protein 7.9 (5.7-8.2) gm/dL Albumin 4.6 (3.5-5.0) gm/dL Globulin 3.3 (2.3-3.5) gm/dL Albumin/Globulin Ratio 1.4 (1.2-2.2) Lipase 62 H (12-53) U/L Discharge Plan Plan Patient Disposition: HOME (Self Care) Patient condition on transfer: Stable Prescriptions/Referrals Referrals: Jovanny Lara MD [Primary Care Provider] - In 1 week Problem List Clinical Impression: Hypertension, Total bilirubin, elevated Patient/Caregiver Discharge Instructions Other Activity Instructions:: Your bilirubin has been rising slowly over the past several days. MRCP is negative for choledocholithiasis. Please follow-up with your primary care doctor for trending, if you have a fever that is not responding to Tylenol or worsening abdominal pain with nausea vomiting return to the emergency room for reevaluation. Education Materials: ED High Blood Pressure ... Print Language: Kinyarwanda Stand Alone Forms: [employer] Award Info., Patient Portal Info Letter, Work/School Release PA/CLAMP CARRIER OPERATOR Supervising Physician PA/CLAMP CARRIER OPERATOR Supervising Physician: Tad Gilbert ENP
== END 2024-07-22 11:51 | disposition home or self-care (01) ==
PROVIDERS: Nurse Practitioner Family; Emergency Provider Emergency Medicine; PCP Family Medicine
DX: R17 Unspecified jaundice (principal); I10 Essential (primary) hypertension; R10.11 Right upper quadrant pain
CPT/HCPCS: 36415; 80053; 83690; 85025; 99284; S8037; 74181; A9270